=== PATIENT | female | born 1945 | race Caucasian/White ===

== ENCOUNTER 2022-08-17 00:45 | Day surgery (SDC) | payer MEDICARE, SELFPAY ==
[2022-08-03 15:16] VITALS: BMI 20.2
--- NOTE | 2022-08-16 14:24 | PM.HPGS ---
History of Present Illness History of Present Illness Consent: Risks, benefits, and alternatives have been discussed and questions answered. Patient agrees to proceed with procedure. Chief complaint: Barretts Esop, Hx of Colon Polyps Narrative: Alyssa Mg is a 76 year old female Referred for endoscopy and colonoscopy. 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 She also had a colon polyp removed about 6 years ago. 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 That had resulted in a great deal of difficulty swallowing but now she is doing fairly well with liquids Review of Systems Review of Systems: All systems reviewed & are unremarkable except as noted in HPI and below PMFSH Social History Social History Smoking status: Former smoker Tobacco type: cigarettes Alcohol intake: former Substance use: never Substance use type: does not use Living arrangements: with family Spiritual care concerns: No Meds Home Medications and Allergies Home Medications Medication Instructions Recorded Confirmed Type aspirin 81 mg chewable tablet 81 mg PO DAILY 07/04/22 08/03/22 History fluticasone propionate 50 1 - 2 spray intranasal BID #16 mL 07/04/22 08/03/22 Rx mcg/actuation nasal spray,suspension (Flonase Allergy Relief) mupirocin 2 % topical ointment 1 applic topical BID #22 grams 07/04/22 08/03/22 Rx omeprazole 40 mg capsule,delayed 40 mg PO DAILY 08/03/22 08/03/22 History release alprazolam 0.5 mg tablet 0.5 mg PO TID PRN Anxiety 08/15/22 08/15/22 History Allergies Allergy/AdvReac Type Severity Reaction Status Date / Time acetaminophen Allergy Intermediate NAUSEA AND Verified 08/17/22 07:46 VOMITING codeine Allergy Intermediate NAUSEA AND Verified 08/17/22 07:46 VOMITING Sulfa (Sulfonamide Allergy Mild ITCHING Verified 08/17/22 07:46 Antibiotics) sulfamethoxazole Allergy Mild ITCHING Verified 08/17/22 07:46 tetracycline Allergy Mild THROAT Verified 08/17/22 07:46 SWELLED SHUT, FACE AND LIP SWELLING trimethoprim Allergy Mild ITCHING Verified 08/17/22 07:46 Exam Const: General: alert Orientation/consciousness: patient oriented x3 Resp: Auscultation: clear to auscultation bilaterally Cardio: Rhythm: regular rhythm GI: GI Palp: Yes Soft to palpation and No Tenderness to palpation present (GI) Neuro: General: patient oriented x3 Assessment and Plan Assessment and plan (1) Pérez's esophagus: Code(s): K22.70 - Pérez's esophagus without dysplasia Status: Acute Assessment and Plan: EGD with possible biopsy or dilatation or cautery. (2) Colon cancer screening: Code(s): Z12.11 - Encounter for screening for malignant neoplasm of colon Status: Acute Assessment and Plan: Colonoscopy with possible biopsy or polypectomy or cautery or injection of substances.
[2022-08-17 07:47] VITALS: BP 136/62; PULSE 80; RESP 18; TEMP 36.1; O2SAT 99
[2022-08-17] MEDS: LACTATED RINGERS 1,000 ML 150 ML IV CONT (08:04)
--- NOTE | 2022-08-17 08:29 | WPDANESEPPF ---
Anes - Initial Pre Proc Eval Procedure: Operation Date: 08/17/22 09:00 Proposed Procedures p Colonoscopy & Esophagogastroduodenoscopy - Cheo Hill MD Date/Time: 08/17/22 08:29 Surgeon: Cheo Hill MD Pre Op Diagnosis: Barretts Esop, Hx of Colon Polyps Patient Data Age: 76 Gender: F Height: 1.47 m Weight: 43.8 kg Last Vital Signs Temp 36.1 C L 08/17/22 07:47 Pulse 80 08/17/22 07:47 Resp 18 08/17/22 07:47 BP 136/62 08/17/22 07:47 Pulse Ox 99 08/17/22 07:47 O2 Del Method Room Air 08/17/22 07:47 Allergies Allergy/AdvReac Type Severity Reaction Status Date / Time acetaminophen Allergy Intermediate NAUSEA AND Verified 08/17/22 07:46 VOMITING codeine Allergy Intermediate NAUSEA AND Verified 08/17/22 07:46 VOMITING Sulfa (Sulfonamide Allergy Mild ITCHING Verified 08/17/22 07:46 Antibiotics) sulfamethoxazole Allergy Mild ITCHING Verified 08/17/22 07:46 tetracycline Allergy Mild THROAT Verified 08/17/22 07:46 SWELLED SHUT, FACE AND LIP SWELLING trimethoprim Allergy Mild ITCHING Verified 08/17/22 07:46 Home Medications Medication Instructions Recorded Confirmed Type aspirin 81 mg chewable tablet 81 mg PO DAILY 07/04/22 08/03/22 History fluticasone propionate 50 1 - 2 spray intranasal BID #16 mL 07/04/22 08/03/22 Rx mcg/actuation nasal spray,suspension (Flonase Allergy Relief) mupirocin 2 % topical ointment 1 applic topical BID #22 grams 07/04/22 08/03/22 Rx omeprazole 40 mg capsule,delayed 40 mg PO DAILY 08/03/22 08/03/22 History release alprazolam 0.5 mg tablet 0.5 mg PO TID PRN Anxiety 08/15/22 08/15/22 History Patient hx anesthesia problems: none Family hx anesthesia problems: none Results Review: All pre-operative results and documents have been reviewed as part of the pre-operative evaluation. [facility] Past Medical History Medical History (Updated 08/17/22 @ 08:36 by Keon Lawrence MD) COPD (chronic obstructive pulmonary disease) CVA (cerebral vascular accident) HTN (hypertension) Lung cancer Rheumatoid arthritis Throat cancer TIA (transient ischemic attack) Surgical History Surgical History (Updated 08/17/22 @ 08:36 by Keon Lawrence MD) History of coronary artery stent placement Social History Social History Smoking status: Former smoker Tobacco type: cigarettes Alcohol intake: former Substance use: never Substance use type: does not use Living arrangements: with family Spiritual care concerns: No Anes - Eval Final PreProcedure Day of Procedure 08/17/22 08:29 Patient weight: normal Heart: regular rate and rhythm Lungs: clear to auscultation and normal air movement Airway: Mallampati scale class II Neurological: alert and oriented Last oral intake: >/= 8 hours ASA classification: III Emergent: no Anesthetic plan: proceed Anesthesia type and monitoring: general GIVS Results Review: All pre-operative results and documents have been reviewed as part of the pre-operative evaluation. Informed Consent: The patient's anesthetic plan and its attendant risks and benefits were discussed with the patient/family/POA. Questions were solicited and answers provided to the satisfaction of the patient/family/POA.
--- NOTE | 2022-08-17 08:58 | SUR.OPER ---
EGD START: 839; END: 842. COLONOSCOPY START: 848; END: 856.
[2022-08-17 08:59] VITALS: BP 87/48; PULSE 71; RESP 20; O2SAT 98
[2022-08-17 09:09] VITALS: BP 87/47; PULSE 70; RESP 20; O2SAT 99
[2022-08-17 09:19] VITALS: BP 113/57; PULSE 75; RESP 20; O2SAT 100
== END 2022-08-17 09:40 | disposition home or self-care (01) ==
PROVIDERS: PCP Internal Medicine; Visit Provider Internal Medicine Gastroenterology
PROC: 0DJ08ZZ Inspection of Upper Intestinal Tract, Via Natural or Artificial Opening Endoscopic (ICD-10-PCS; CPT 43235; principal; 2022-08-17 09:00)
DX: Z12.11 Encounter for screening for malignant neoplasm of colon (principal); K57.30 Diverticulosis of large intestine without perforation or abscess without bleeding; Z86.010 Personal history of colon polyps; K22.70 Barrett's esophagus without dysplasia; K31.7 Polyp of stomach and duodenum; I10 Essential (primary) hypertension; J44.9 Chronic obstructive pulmonary disease, unspecified; M06.9 Rheumatoid arthritis, unspecified; Z86.73 Personal history of transient ischemic attack (TIA), and cerebral infarction without residual deficits; Z85.118 Personal history of other malignant neoplasm of bronchus and lung; Z85.819 Personal history of malignant neoplasm of unspecified site of lip, oral cavity, and pharynx; Z85.841 Personal history of malignant neoplasm of brain; Z79.82 Long term (current) use of aspirin; Z95.5 Presence of coronary angioplasty implant and graft; Z87.891 Personal history of nicotine dependence
CPT/HCPCS: 43239; G0105; 88305; J2704; J7120

== ENCOUNTER 2022-11-25 07:29 | Outpatient (CLI) | payer MEDICARE, SELFPAY ==
[2022-11-25 08:28] LABS: Hematocrit 31.9 % (37.0-47.0); Mean Corpuscular HGB Conc 34.5 g/dl (32-36); Mean Corpuscular Hemoglobin 33.7 pg (26-34); Mean Corpuscular Volume 97.9 fl (80-100); Mean Platelet Volume 10.6 fl (7.4-10.4); Platelet Count Result 313 k/mm3 (150-375); Red Blood Count 3.26 M/mm3 (4.2-5.4); Red Cell Distribution Width 15.1 % (11.5-14.5); White Blood Count 7.6 K/mm3 (4.5-10.0)
[2022-11-25 08:47] LABS: Alanine Aminotransferase 78 U/L (6-35); Albumin Level 4.1 g/dL (3.5-5.1); Alkaline Phosphatase 1262 U/L (38-126); Amylase 82 U/L (30-110); Aspartate Amino Transferase 114 U/L (14-36); Bilirubin Direct 3.4 mg/dL (0-0.3); Bilirubin,Total 6.9 mg/dL (0.2-1.3); CRP 1.3 mg/dL (<1.0); Lipase 216 U/L (23-300)
[2022-11-25 09:24] LABS: Hepatitis B Surface Antigen Negative (Negative)
[2022-11-25 09:31] LABS: HAV RESULT Negative (Negative); Hepatitis B Core IgM Result Negative (Negative)
[2022-11-25 09:42] LABS: Hepatitis C Virus Antibody Negative (Negative)
[2022-11-25 09:48] LABS: Iron 126 ug/dL (37-170)
[2022-11-25 10:05] LABS: Erythrocyte Sedimentation Rate 84 mm/hr (0-20)
[2022-11-25 11:30] LABS: Percent Iron Saturation 35 % (20-50)
[2022-11-28 11:44] LABS: Actin Antibody (IgG) <20 U (<20)
[2022-11-28 15:45] LABS: Hepatitis C Viral RNA PCR <15 IU/mL
[2022-11-29 14:06] LABS: Gliadin AB, IgG <1.0 U/mL (<15.0); TTG IGA AB 1.9 U/mL (<15.0)
[2022-11-30 10:42] LABS: Alpha-1-Antitrypsin, QN 235 mg/dL (83-199); Ceruloplasmin 52 mg/dL (18-53)
[2022-11-30 14:14] LABS: Anti Nuclear Antibody Titer 1:40 (Negative)
[2022-12-05 13:18] LABS: HCV Genotype PCR Not Detected
== END 2022-11-25 07:30 | disposition home or self-care (01) ==
PROVIDERS: PCP Internal Medicine; Visit Provider Nurse Practitioner
DX: C32.9 Malignant neoplasm of larynx, unspecified (principal); C34.90 Malignant neoplasm of unspecified part of unspecified bronchus or lung; C79.31 Secondary malignant neoplasm of brain; K21.9 Gastro-esophageal reflux disease without esophagitis; K22.70 Barrett's esophagus without dysplasia; R79.89 Other specified abnormal findings of blood chemistry; K74.60 Unspecified cirrhosis of liver
CPT/HCPCS: 36415; 80074; 80076; 82103; 82150; 82390; 82728; 83516; 83540; 83550; 83690; 85027; 85652; 86038; 86039; 86140; 86255; 87522

== ENCOUNTER 2022-11-30 06:39 | Outpatient (CLI) | payer MEDICARE, SELFPAY ==
--- NOTE | ~2022-11-30 | MR_ITS ---
EXAMINATION: MR MRCP wo/w con/w 3D wo ind DATE: 11/30/2022 08:06 INDICATION: Jaundice. TECHNIQUE: Magnetic resonance imaging (MRI) of the abdomen was performed without and with 9 mL MultiH ance intravenous contrast. Sequences included coronal T2-weighted FS FSE, coronal T2-weighted FSE, ax ial T1-weighted LAVA, coronal FS FIESTA, axial dual-echo T1-weighted SPGR, coronal lava-FLEX, sagitta l T2-weighted FSE, axial T2-weighted FSE, and axial DWI. Thick-slab T2-weighted FSE images were obtai barron for magnetic resonance cholangiopancreatography (MRCP). Maximum intensity projection 3-D reconstr uctions of the volumetric data were created by the technologist. Postcontrast sequences included katie nal LAVA-flex and time course of axial T1-weighted LAVA. COMPARISON: None. FINDINGS: ABDOMEN MRI: There are cysts in the liver measuring up to 5 mm. The gallbladder is either contracted or absent. Pancreas divisum is noted. The spleen and adrenal glands are normal. There is cortical thi nning of the kidneys. There are no dilated loops of bowel. There are no pathologically enlarged lymph nodes. There is no free intraperitoneal fluid. There is severe thoracolumbar spondylosis. There is a compression fracture of L2, likely acute or subacute. ABDOMEN MRCP: The common duct is normal and measures 3 mm . IMPRESSION: 1. No etiology for jaundice. Reviewed, dictated and finalized at location [facility] [employer]
== END 2022-11-30 06:40 | disposition home or self-care (01) ==
LOC: ANHIMG 06:45
PROVIDERS: PCP Internal Medicine; Visit Provider Nurse Practitioner
DX: R17 Unspecified jaundice (principal); R79.89 Other specified abnormal findings of blood chemistry; C32.9 Malignant neoplasm of larynx, unspecified; C79.31 Secondary malignant neoplasm of brain; C34.90 Malignant neoplasm of unspecified part of unspecified bronchus or lung
CPT/HCPCS: 74183; 76376; A9577